=== PATIENT | female | born 1950 | race Caucasian/White ===

== ENCOUNTER → 2017-12-22 | Outpatient (CLI) | payer MEDICARE ==
[~2017-12-22] MED LIST: ASCO-191 PO; ASPI-1471 PO; ASPI81TA94 PO; B CO1TAB16 PO; CALC-635 PO; CALC-733 PO; CETI-176 PO; CHOL100059 PO; GLUC-128 PO; GLUC1TAB35 PO; HYDR453.8 TP; IBUP600T22 PO; LACT1CAP49 PO; LUTE10TA3 PO; LUTE20TA PO; MULT-820 PO; NITR-105 PO; PNEI IJ; PNEU0.5D3 IM; RANI-324 PO; SULF-198 PO; TERB250T74 PO; TRET45CR28 TP; VITA1CAP46 PO; [UNRECOGNIZED DRUG - OTHER] PO; [UNRECOGNIZED DRUG - OTHER] PO
== END ==
LOC: LAB 09:17
PROVIDERS: ATTEND Nurse Practitioner Primary Care
DX: R30.0 Dysuria (principal)
CPT/HCPCS: 81001; 87088